=== PATIENT | female | born 1990 | race Caucasian/White ===

== ENCOUNTER 2018-04-24 09:49 | Observation (INO) | payer BC ==
[2018-04-24] MEDS ORDERED: ISOVUE-370 76%-LOCM 1 ML ONE (10:02)
[2018-04-24 11:01] LABS: Bilirubin Negative (Negative); Blood, Urine Negative (Negative); Clarity CLOUDY (Clear); Glucose, Urine (Dipstick) Negative (Negative); Leukocyte Negative (Negative); Nitrite Negative (Negative); Protein, Urine (Dipstick) Negative (Neg-Trace); Specific Gravity, Urine 1.004 (1.002-1.036); Urobilinogen 0.2 mg/dL (0.2-1.0)
[2018-04-24 11:33] LABS: #Basophils 0.1 thou/uL (0.0-0.2); #Eosinphils 0.1 thou/uL (0.0-0.7); #Lymphocytes 2.4 thou/uL (1.20-3.40); #Monocytes 0.5 thou/uL (0.11-0.59); %Basophils 0.7 % (0.0-1.0); %Eosinophils 0.7 % (0.0-10.0); %Lymphocytes 23.9 % (21.0-51.0); %Monocytes 4.7 % (0.0-10.0); Mean Corpuscular HGB CONC 33.9 g/dL (32.0-36.0); Mean Corpuscular Hemoglobin 30.3 pg (27.0-31.0); Mean Corpuscular Volume 89.6 fL (78.0-98.0); Mean Platelet Volume 7.8 fL (7.4-10.4); Platelet Count 293 thou/uL (130-400); RBC Distribution Width 11.2 % (11.5-14.5); Red Blood Cell (RBC) Count 4.63 mill/uL (4.20-5.40); White Blood Cell (WBC) Count 9.9 thou/uL (4.8-10.8)
[2018-04-24 11:42] LABS: BHCG - Serum Negative (NEGATIVE); Pregs Control Background? CLEAR/WHITE (CLR/WHITE); Pregs Control Bar Appear? YES (CONTROL BAR)
--- NOTE | 2018-04-24 11:50 | RAD ---
CHEST 1 VIEW: Date: 04/24/18 HISTORY: Syncope. COMPARISON: None. FINDINGS: Exam limited by underlying backboard. No acute displaced fracture of the ribs. Lungs are clear. No pn eumothorax or effusion. Cardiac silhouette and mediastinal contour is within normal limits. IMPRESSION: No acute intrathoracic abnormality. POS: [facility]
[2018-04-24 11:51] LABS: ALT (SGPT) 23 U/L (8-55); AST (SGOT) 21 U/L (5-34); Albumin 4.5 g/dL (3.5-5.0); Alkaline Phosphatase 71 U/L (40-150); Anion Gap 15 mmol/L (10-20); BUN (Urea Nitrogen) 11 mg/dL (7.0-18.7); Bilirubin, Total 0.7 mg/dL (0.2-1.2); CK (CPK) 387 U/L (29-168); Calc. Creatinine Clearance 0 mL/min (70-130); Carbon Dioxide 20 mmol/L (22-29); Chloride 109 mmol/L (98-107); Estimated GFR-MDRD 63; Globulin 2.6 g/dL (2.4-3.5); Glucose 96 mg/dL (70-105); Potassium 3.4 mmol/L (3.5-5.1); Protein, Total 7.1 g/dL (6.0-8.3); Sodium 141 mmol/L (136-145)
[2018-04-24 11:52] LABS: CKMB 0.7 ng/mL (0-6.6); Troponin I Less than 0.010 ng/mL (< 0.028)
--- NOTE | 2018-04-24 12:20 | CT ---
NONCONTRAST CT HEAD: Date: 04/24/18 HISTORY: Head injury. Syncope. COMPARISON: None available. FINDINGS: There is no evidence of a hemorrhage, acute infarction, mass effect, or midline shift. Ventricular sy stem is normal in size, shape, and position. Mucosal thickening is present in the right maxillary antrum. Remainder of the visualized paranasal si nuses and mastoid air cells are clear. The calvarial structures are intact without evidence of a frac ture. IMPRESSION: 1. No acute intracranial abnormalities demonstrated. 2. Sinus disease involving right maxillary antrum. POS: [facility]
--- NOTE | 2018-04-24 12:22 | CT ---
CT CERVICAL SPINE WITHOUT IV CONTRAST: Date: 04-24-18 History: Injury after a fall. Syncopal episode. Technique: Contiguous axial CT images are obtained through the cervical spine from the skull to the T 1-2 level. Sagittal and coronal reformatted images are provided. FINDINGS: There is no evidence of a fracture or subluxation involving the cervical spine. Prevertebral soft tis sues are within normal limits. Central spinal canal and neural foramina are patent. IMPRESSION: No fracture or subluxation involving the cervical spine. POS: [facility]
--- NOTE | 2018-04-24 12:24 | CT ---
CT ANGIOGRAM THORAX WITH IV CONTRAST AND 3D RECONSTRUCTIONS: Date: 04-24-18 History: Dyspnea. Syncopal episode. Comparison: None available. FINDINGS: No filling defects are seen in the pulmonary arteries to suggest a pulmonary embolus. The thoracic aorta is normal in caliber without evidence of an aortic dissection. Mediastinal structures have a normal CT appearance. The lungs are clear aside from dependent ground glass densities probably related to mild volume loss. No pleural effusion, pulmonary nodule, or mass is seen in the lungs bilaterally. The osseous structures have a normal appearance. Upper abdomen demonstrates normal CT appearance for arterial phase of imaging. IMPRESSION: 1. No CT evidence of a pulmonary embolus. POS: [facility]
--- NOTE | 2018-04-24 12:54 | RAD ---
THREE VIEWS RIGHT SHOULDER: Date: 04-24-18 History: Injury to right shoulder after a fall. FINDINGS: There is no evidence of a fracture, dislocation, or other osseous abnormality involving the left shou lder. IMPRESSION: No acute osseous abnormality. POS: [facility]
--- NOTE | 2018-04-24 15:35 | HP ---
PRIMARY CARE PHYSICIAN: Hickory Jean, but she cannot remember the name of the doctor. CHIEF COMPLAINT: Passed out several times. HISTORY OF PRESENT ILLNESS: Ms. Geronimo is a very pleasant 28-year-old female that has no significant past medical history except for childhood asthma. She says that she was at work when she was talking with a coworker and was getting ready to transfer a payment when everything went black. She had jus t stood up, she says, when this happened. Apparently, she fell and hit the ground and another cowork er called 911. By the time the EMS arrived, she was starting to come to. There was no report of any seizure-like activity. She says, when they tried to help her into the stretcher, she collapsed into her boss' arms, and again passed out. By this time, her fiance arrived, and she was placed in the a mbulance and it is reported that she had 2 or 3 more episodes of passing out while she was in the amb ulance. She was lying down at that time and each time it lasted a few minutes and her fiance says th at she would come to and be completely lucid at that time, but a little disoriented saying why she is in the ambulance and she did need to go to the hospital. He did not notice anything that looked lik e a seizure per his opinion. He did say that her blood pressures seem to fluctuate between 130s and 150s systolic, but her diastolic stayed within the 80s. The patient says that she has been having so me chest pain off and on, like an elephant sitting on her chest. She says the chest pain is unrelate d to exertion. She also, at times, will get extremely short of breath. This is also unrelated to ex ertion. He says sometimes it will happen at night, she will feel like she is short of breath and can not breathe. She also says that she has a cough, which has been off and on productive and also has p alpitations sometimes lasting up to a few hours. The patient says that she had a similar episode about 2 years ago. She was evaluated at [facility] in [place]. Apparently, they did a CT scan. She says she may have done some other tests and was seen by a neurologist and told that they could not find anything and she was discharged. She does admit that her job has been extremely stressful, especially with one particular coworker, but o therwise no other complaints. REVIEW OF SYSTEMS: All systems were reviewed and are negative except for that mentioned in the histo ry of present illness. PAST MEDICAL HISTORY: Significant for asthma. PAST SURGICAL HISTORY: She has had a tonsillectomy and adenoidectomy. ALLERGIES: No known drug allergies. SOCIAL HISTORY: She is engaged. She works at the [employer]. She is a nonsmoker. She occasion ally drinks. She admits to having had a miscarriage before. FAMILY HISTORY: Significant for heart disease in her grandfather. MEDICATIONS: Include Adderall 10 mg daily, and she has been on this for the past month. PHYSICAL EXAMINATION: GENERAL: She is alert and oriented. She appears to be in no acute distress. VITAL SIGNS: Blood pressure was 103/60, heart rate 79, respiratory rate of 18, temperature is 97.7. HEENT: Pupils are equal, round, and reactive. Extraocular muscles are intact. Her sclerae are anic teric. Throat no erythema and no exudates. NECK: No adenopathy, no bruits. LUNGS: Clear to auscultation. There is no wheezing, no rales. CARDIOVASCULAR: She had a normal S1 and S2. I did not appreciate an S3 or S4. No murmurs, clicks, or rubs. ABDOMEN: Soft, it is nontender, nondistended. Positive for bowel sounds. There is no rebound or gu arding. EXTREMITIES: There is no clubbing or cyanosis, no edema. NEUROLOGICAL: The exam is nonfocal. Her muscle strength is 5/5 in both her upper and lower extremit ies. Reflexes were symmetric. LABORATORY RESULTS: Urinalysis is negative. CT scan of the brain was negative. She had a white blo od cell count of 9.9, hemoglobin 14, hematocrit is 41.5, platelet count is 293. Sodium 141, potassiu m 3.4, chloride is 109, CO2 is 20, BUN of 11, creatinine 1.05, glucose is 96. Troponin is less than 0.010. Serum test is negative. She had an EKG, which is sinus. She had a sinus arrhythmi a, but no ST-wave changes. She had a CT scan of the brain, which was negative. Also, after she fell , she also had a CT angiogram of her chest, which was negative for PE. CT of the cervical spine and shoulders and x-rays of the wrist and hand were negative. ASSESSMENT AND PLAN: This is a 28-year-old female that presents to the emergency room after having a syncopal episode. She had the episodes, both in the standing position as well as a lying position, which makes the differential more difficult. There was no witnessed arrhythmia during that time. Sh e will be placed in observation. We will monitor her on telemetry, get an echocardiogram as well as carotid Dopplers. We will request the records from [facility] in [place] and consult Car diology since it does not appear that there was any seizure-like activity involved and she had seen a neurologist in the past. Monitor her blood pressure.
[2018-04-24] MEDS ORDERED: Acetaminophen 325 MG TAB PO PRN ×2 (16:01→16:11)
[2018-04-24] MEDS ORDERED: Ondansetron HCl/PF 4 MG/2 ML Vial IVP PRN (16:01)
[2018-04-24] MEDS ORDERED: Ondansetron ODT 4 MG TAB SL PRN (16:01)
--- NOTE | 2018-04-24 17:00 | CON ---
DATE OF CONSULTATION: 04/24/2018 REASON FOR CONSULTATION: Syncope. HISTORY OF PRESENT ILLNESS: Ms. Geronimo is a very pleasant 28-year-old woman with no significant past medical history of a syncopal episode. She had multiple syncopal episodes prior to arrival. She sta melly she feels like she is going to have an asthma attack prior to the episode. The only new medicati on she started has been Adderall 30 days ago. She also complained of mild chest discomfort that can last all day. She has also complained of intermittent shortness of breath. PAST MEDICAL HISTORY: Asthma. PAST SURGICAL HISTORY: Tonsillectomy, adenoidectomy. ALLERGIES: None. SOCIAL HISTORY: No current tobacco or alcohol use. MEDICATIONS: As above. PHYSICAL EXAMINATION: VITAL SIGNS: Blood pressure 100/60, pulse 80, respirations 20. NEUROLOGIC: The patient is alert and oriented times 3 with no focal neurologic deficits. HEENT: Sclerae without icterus. Mouth has moist mucous membranes with normal pallor. NECK: No JVD. Carotid upstroke brisk. No bruits bilaterally. LUNGS: Clear to auscultation with unlabored respirations. BACK: No scoliosis or kyphosis. CARDIAC: Regular rate and rhythm with normal S1 and S2. No S3 or S4 noted. No significant rubs, murmurs, thrills, or gallops noted throughout the precordium. PMI is not displaced. There is no parasternal heave. ABDOMEN: Soft, nontender, nondistended. No peritoneal signs present. No hepatosplenomegaly. No abnormal striae. EXTREMITIES: 2+ femoral and 2+ dorsalis pedis pulses. No cyanosis, clubbing, or edema. SKIN: No gross abnormalities. PERTINENT LABORATORY DATA: Hemoglobin 14, hematocrit 41. EKG: Normal sinus rhythm, nonspecific ST wave changes. IMPRESSION: Syncope. Etiology unknown. She has no significant past medical history for syncope. RECOMMENDATIONS: I would recommend a 3-week event recorder as well as a treadmill stress test and ec ho. I also discussed not driving given a recent syncope. Further recommendations pending the above.
--- NOTE | 2018-04-24 17:21 | ULT ---
STANDARD ULTRASOUND CAROTID DOPPLER: HISTORY: Syncope. COMPARISON: None. TECHNIQUE: Real-time verde-scale color Doppler and spectral analysis of the extracranial carotid and vertebral ar teries was performed. FINDINGS: There is antegrade flow to both vertebral arteries. The right ICA/CCA ratio is 0.89. The left ICA/C CA ratio is 0.59. No elevated peak systolic velocities within the internal carotid arteries. IMPRESSION: No hemodynamically significant stenosis. POS: [facility]
[2018-04-24 19:33] VITALS: BMI 22.8
[2018-04-25 06:31] LABS: Anion Gap 9 mmol/L (10-20); BUN (Urea Nitrogen) 10 mg/dL (7.0-18.7); Calc. Creatinine Clearance 97 mL/min (70-130); Calcium 9.2 mg/dL (7.8-10.44); Carbon Dioxide 23 mmol/L (22-29); Cardiac Risk 3.5 (Less than 4.5); Chloride 110 mmol/L (98-107); Cholesterol 146 mg/dl (< 200 Desired); Estimated GFR-MDRD 72; Glucose 92 mg/dL (70-105); HDL Cholesterol 42 mg/dL (>60 Neg Risk); LDL Cholesterol, Calculated 89 mg/dL; Potassium 4.1 mmol/L (3.5-5.1); Sodium 138 mmol/L (136-145); Triglycerides 76 mg/dL (Less than 150)
[2018-04-25 06:44] LABS: #Basophils 0.1 thou/uL (0.0-0.2); #Eosinphils 0.2 thou/uL (0.0-0.7); #Lymphocytes 2.7 thou/uL (1.20-3.40); #Monocytes 0.5 thou/uL (0.11-0.59); #Neutrophils 2.6 thou/uL (1.40-6.50); %Basophils 1.3 % (0.0-1.0); %Eosinophils 2.7 % (0.0-10.0); %Lymphocytes 45.3 % (21.0-51.0); %Monocytes 8.2 % (0.0-10.0); %Neutrophils 42.6 % (42.0-75.0); Hemoglobin 13.6 g/dL (12.0-16.0); Mean Corpuscular HGB CONC 34.6 g/dL (32.0-36.0); Mean Corpuscular Hemoglobin 31.4 pg (27.0-31.0); Mean Corpuscular Volume 90.7 fL (78.0-98.0); Mean Platelet Volume 7.3 fL (7.4-10.4); Platelet Count 273 thou/uL (130-400); RBC Distribution Width 11.4 % (11.5-14.5); Red Blood Cell (RBC) Count 4.34 mill/uL (4.20-5.40); White Blood Cell (WBC) Count 6.1 thou/uL (4.8-10.8)
--- NOTE | 2018-04-25 08:28 | PDOC.PN ---
- Subjective Encounter Start Date: 04/25/18 Encounter Start Time: 08:25 Ms. Geronimo was seen today in follow-up of syncope. She does not have any complaints this morning. she denies having any other syncopal episodes. - Objective Resuscitation Status: Resuscitation Status FULL:Full Resuscitation MAR Reviewed: Yes Vital Signs & Weight: Vital Signs (12 hours) Temp Pulse Resp BP BP BP Pulse Ox 04/25/18 03:24 97.8 F 61 16 98/62 128/79 122/84 98 Weight Weight 150 lb I&O: 04/24/18 04/25/18 04/26/18 06:59 06:59 06:59 Intake Total 920 Balance 920 Result Diagrams: 04/25/18 05:48 04/25/18 05:48 Additional Labs: Accuchecks 04/24/18 09:54 POC Glucose 92 Phys Exam - Physical Examination HEENT: PERRLA Respiratory: no wheezing, no rales, no rhonchi, clear to auscultation bilateral Cardiovascular: RRR, no significant murmur, no rub Gastrointestinal: soft, non-tender, no distention, positive bowel sounds Musculoskeletal: no edema Dx/Plan (1) Syncope Code(s): R55 - SYNCOPE AND COLLAPSE Status: Acute - Plan * Syncope- ? etiology * Carotid dopplers were negative * Await Echo and stress test results. Likely home this evening, with follow-up for Event recorder.
[2018-04-25 17:01] VITALS: BP 113/65; TEMP 97.5
--- NOTE | 2018-04-25 18:00 | PDOC.CTH ---
Cardiology Progress Note - Subjective Patient without complaints. No dizziness or near syncope. - Objective Vital Signs Temp Pulse Resp BP BP BP 04/25/18 16:05 97.5 F L 75 20 113/65 113/65 04/25/18 08:00 97.7 F 55 L 20 04/25/18 07:35 97.7 F 55 L 20 114/72 114/72 Admit Weight 150 lb 3 oz Weight 150 lb 04/24/18 04/25/18 04/26/18 06:59 06:59 06:59 Intake Total 920 Balance 920 - Physical Examination General/Neuro: alert & oriented x3 Lungs: CTA Heart: RRR Abdomen: NT/ND Extremities: other: (no edema) - Telemetry Telemetry Rhythm: SR - Labs Result Diagrams: 04/25/18 05:48 04/25/18 05:48 Troponin/CKMB CK-MB (CK-2) 0.7 ng/mL (0-6.6) 04/24/18 11:02 Troponin I Less than 0.010 ng/mL (< 0.028) 04/24/18 11:02 - Assessment/Plan 1. Recurrent syncope Carotid, ECHO and ETT negative. No arrhythmias on tele. Ok for discharge with plan for f/u with 30 day EVR. Also could consider LINQ placement.
--- NOTE | 2018-04-25 23:52 | DIS ---
DATE OF ADMISSION: 04/24/2018 DATE OF DISCHARGE: 04/25/2018 PRIMARY CARE PHYSICIAN: James Pena. DISCHARGE DISPOSITION: Home. PRIMARY DISCHARGE DIAGNOSES: 1. Syncope. 2. History of childhood asthma. DISCHARGE MEDICATIONS: Adderall 10 mg daily, biotin 10,000 units daily. CODE STATUS: FULL CODE. ALLERGIES: No known drug allergies. PROCEDURES DONE DURING ADMISSION: The patient had a CT scan of the brain as well as CT scan of the C -spine, which were negative for any fracture. No bleeding. She had a CT angiogram of the chest, whi ch was negative for pulmonary embolism. She had bilateral carotid Dopplers, which were negative for any flow-limiting disease. She had an echocardiogram, which was essentially negative. The patient w as seen by Cardiology as well. HOSPITAL COURSE: Ms. Geronimo is a pleasant 28-year-old female, who presented to the emergency room aft er having several syncopal episodes at home. The full description of which are in my history and phy sical. She was placed in observation, ruled out by cardiac enzymes. She was monitored on telemetry, and during her time in the hospital, there was no evidence of any ectopy or arrhythmia. She had an echo as well as Carotid Dopplers, which were negative and seen by cardiologists. She also had an exe rcise treadmill test, which was also negative. She was seen by Dr. Tejeda, who recommended she un dergo a 3-week event monitor. He will mail the monitor to the patient, and after discharge, she will follow up with him as instructed. She also needs to follow up with her primary care physician in 1- 2 weeks as well.
--- NOTE | 2018-04-26 12:57 | EKG ---
Test Reason : SYNCOPE Blood Pressure : / mmHG Vent. Rate : 077 BPM Atrial Rate : 077 BPM P-R Int : 120 ms QRS Dur : 086 ms QT Int : 382 ms P-R-T Axes : 002 069 008 degrees QTc Int : 432 ms Normal sinus rhythm with sinus arrhythmia Normal ECG Confirmed by DANNA BEDOYA MD ([id number]), legal editor IRWIN DAMIAN ([id number] on 04/26/2018 12:56:48 PM Referred By: Confirmed By:DANNA BEDOYA MD
== END 2018-04-25 16:45 | disposition home or self-care (01) ==
LOC: ERS 09:49 → 2NO 13:45
PROVIDERS: ADMIT Internal Medicine; ATTEND Internal Medicine
DX: R55 Syncope and collapse (principal); Z79.899 Other long term (current) drug therapy
CPT/HCPCS: 36415; 36416; 70450; 71045; 71275; 72125; 80048; 80053; 80061; 81003; 82553; 84146; 84484; 84703; 85025; 85379; 93005; 93017; 93306; 93880; 94760; 96360; 96361; G0378

== ENCOUNTER 2018-06-13 14:11 | Emergency (ER) | payer BC ==
[2018-06-13 15:13] LABS: #Basophils 0.1 thou/uL (0.0-0.2); #Eosinphils 0.1 thou/uL (0.0-0.7); #Lymphocytes 2.8 thou/uL (1.20-3.40); #Monocytes 0.6 thou/uL (0.11-0.59); #Neutrophils 5.7 thou/uL (1.40-6.50); %Basophils 1.3 % (0.0-1.0); %Eosinophils 0.9 % (0.0-10.0); %Lymphocytes 30.2 % (21.0-51.0); %Monocytes 6.2 % (0.0-10.0); %Neutrophils 61.4 % (42.0-75.0); Hemoglobin 15.4 g/dL (12.0-16.0); Mean Corpuscular HGB CONC 32.8 g/dL (32.0-36.0); Mean Corpuscular Hemoglobin 30.1 pg (27.0-31.0); Mean Corpuscular Volume 91.8 fL (78.0-98.0); Mean Platelet Volume 7.6 fL (7.4-10.4); Platelet Count 304 thou/uL (130-400); RBC Distribution Width 11.1 % (11.5-14.5); White Blood Cell (WBC) Count 9.2 thou/uL (4.8-10.8)
[2018-06-13 15:21] LABS: BHCG - Serum Negative (NEGATIVE); Pregs Control Background? CLEAR/WHITE (CLR/WHITE); Pregs Control Bar Appear? YES (CONTROL BAR)
[2018-06-13 15:31] LABS: ALT (SGPT) 16 U/L (8-55); AST (SGOT) 17 U/L (5-34); Albumin 4.7 g/dL (3.5-5.0); Alkaline Phosphatase 65 U/L (40-150); Anion Gap 13 mmol/L (10-20); BUN (Urea Nitrogen) 8 mg/dL (7.0-18.7); Bilirubin, Total 0.8 mg/dL (0.2-1.2); Calc. Creatinine Clearance 0 mL/min (70-130); Calcium 10.3 mg/dL (7.8-10.44); Carbon Dioxide 25 mmol/L (22-29); Chloride 106 mmol/L (98-107); Estimated GFR-MDRD 67; Globulin 2.5 g/dL (2.4-3.5); Glucose 91 mg/dL (70-105); Potassium 3.7 mmol/L (3.5-5.1); Protein, Total 7.2 g/dL (6.0-8.3); Sodium 140 mmol/L (136-145)
--- NOTE | 2018-06-13 15:43 | RAD ---
TWO VIEWS CHEST: 06/13/18 PROVIDED CLINICAL HISTORY: Chest pain. FINDINGS: No comparison examinations are currently available. The cardiac and mediastinal silhouette and within normal limits. Lungs appear clear. No pleural fluid or pneumothorax apparent. IMPRESSION: No evidence for an acute cardiopulmonary process. POS: [facility]
--- NOTE | 2018-06-13 15:47 | RAD ---
LEFT ELBOW RADIOGRAPHS FOUR VIEWS: 06/13/18 PROVIDED CLINICAL HISTORY: Left elbow pain, status post fall. FINDINGS: IV tubing overlies the left antecubital fossa. There is no evidence for fracture or other acute osseo us abnormality. If there is persistent clinical concern, conservative management and followup imaging are advised. IMPRESSION: As above. POS: [facility]
== END 2018-06-13 16:18 | disposition home or self-care (01) ==
LOC: ERS 14:11
DX: R55 Syncope and collapse (principal); F90.9 Attention-deficit hyperactivity disorder, unspecified type; J45.909 Unspecified asthma, uncomplicated; F41.9 Anxiety disorder, unspecified
CPT/HCPCS: 36415; 71046; 80053; 84703; 85025; 93005; 94760

== ENCOUNTER 2018-06-28 17:31 | Emergency (ER) | payer BC ==
[2018-06-28 18:29] LABS: #Basophils 0.1 thou/uL (0.0-0.2); #Eosinphils 0.2 thou/uL (0.0-0.7); #Lymphocytes 3.1 thou/uL (1.20-3.40); #Monocytes 0.5 thou/uL (0.11-0.59); #Neutrophils 3.8 thou/uL (1.40-6.50); %Basophils 1.3 % (0.0-1.0); %Eosinophils 2.9 % (0.0-10.0); %Lymphocytes 40.3 % (21.0-51.0); %Monocytes 6.4 % (0.0-10.0); %Neutrophils 49.1 % (42.0-75.0); Hemoglobin 12.1 g/dL (12.0-16.0); Mean Corpuscular HGB CONC 33.3 g/dL (32.0-36.0); Mean Corpuscular Hemoglobin 28.8 pg (27.0-31.0); Mean Corpuscular Volume 86.7 fL (78.0-98.0); Mean Platelet Volume 8.3 fL (7.4-10.4); Platelet Count 197 thou/uL (130-400); RBC Distribution Width 10.9 % (11.5-14.5); White Blood Cell (WBC) Count 7.7 thou/uL (4.8-10.8)
--- NOTE | 2018-06-28 19:56 | ULT ---
LEFT UPPER EXTREMITY VENOUS ULTRASOUND WITH DOPPLER: 06/28/18 HISTORY: Edema. Pain. Swelling. COMPARISON: None. TECHNIQUE: Darby scale, color flow, doppler imaging with spectral waveform analysis performed in the left upper e xtremity venous system. FINDINGS: There is compressibility and flow in the internal jugular vein. There is patency and flow in the subc lavian vein. There is compressibility and flow in the axillary vein, cephalic vein, brachial vein, ra dial vein and ulnar vein. There is echogenic material and lack of compressibility in the basilic vein starting in the mid aspect of the humerus and extending just beyond the antecubital fossa. IMPRESSION: Thrombus in the left basilic vein. POS: [facility]
== END 2018-06-28 20:08 | disposition home or self-care (01) ==
LOC: SCSER 17:31
DX: I82.612 Acute embolism and thrombosis of superficial veins of left upper extremity (principal); J45.909 Unspecified asthma, uncomplicated; F41.9 Anxiety disorder, unspecified; F90.9 Attention-deficit hyperactivity disorder, unspecified type
CPT/HCPCS: 85025

== ENCOUNTER 2018-10-04 10:07 | Emergency (ER) | payer BC ==
[2018-10-04 10:42] LABS: #Basophils 0.1 thou/uL (0.0-0.2); #Eosinphils 0.2 thou/uL (0.0-0.7); #Lymphocytes 2.3 thou/uL (1.20-3.40); #Monocytes 0.4 thou/uL (0.11-0.59); #Neutrophils 1.9 thou/uL (1.40-6.50); %Basophils 1.4 % (0.0-1.0); %Eosinophils 3.5 % (0.0-10.0); %Lymphocytes 47.1 % (21.0-51.0); %Monocytes 8.5 % (0.0-10.0); %Neutrophils 39.5 % (42.0-75.0); Hemoglobin 13.6 g/dL (12.0-16.0); Mean Corpuscular HGB CONC 32.1 g/dL (32.0-36.0); Mean Corpuscular Hemoglobin 29.2 pg (27.0-31.0); Mean Platelet Volume 7.7 fL (7.4-10.4); Platelet Count 236 thou/uL (130-400); RBC Distribution Width 11.9 % (11.5-14.5); Red Blood Cell (RBC) Count 4.66 mill/uL (4.20-5.40); White Blood Cell (WBC) Count 4.9 thou/uL (4.8-10.8)
--- NOTE | 2018-10-04 11:30 | ULT ---
VENOUS DOPPLER ULTRASOUND OF THE LEFT UPPER EXTREMITY: Date: 10/04/18 HISTORY: Left arm swelling and edema. TECHNIQUE: Darby scale ultrasound with color flow and spectral Doppler imaging of the deep venous system of the l eft upper extremity was performed. FINDINGS: There is good flow, compression, and normal spectral waveforms of the deep veins of the left upper ex tremity, including the left internal jugular, subclavian, axillary, basilic, radial, ulnar, brachial, and cephalic veins. IMPRESSION: No evidence of deep venous thrombosis in the left upper extremity. POS: [facility]
== END 2018-10-04 11:15 | disposition home or self-care (01) ==
LOC: SCSER 10:07
DX: M79.89 Other specified soft tissue disorders (principal); I49.9 Cardiac arrhythmia, unspecified; J45.909 Unspecified asthma, uncomplicated; F41.9 Anxiety disorder, unspecified; F90.9 Attention-deficit hyperactivity disorder, unspecified type; Z79.899 Other long term (current) drug therapy
CPT/HCPCS: 36415; 85025

== ENCOUNTER 2020-02-15 11:56 | Outpatient (CLI) | payer BC, OTHER ==
[2020-02-16 11:38] LABS: SARS-CoV-2 MS2 Positive; SARS-CoV-2 N Gene Negative; SARS-CoV-2 S Gene Negative; SARS-CoV-2 orf1ab Negative
== END 2020-02-15 11:57 | disposition home or self-care (01) ==
LOC: SCSLAB 11:56
PROVIDERS: ATTEND Obstetrics & Gynecology
DX: Z01.812 Encounter for preprocedural laboratory examination (principal); Z11.59 Encounter for screening for other viral diseases
CPT/HCPCS: 87635; U0003

== ENCOUNTER 2020-02-18 18:00 | Inpatient (IN) | payer BC, OTHER ==
[~2020-02-18 18:00] MED LIST: Bupivacaine 0.25% HCL 30 ML VIAL ONE
[2020-02-18 18:43] VITALS: BMI 34.0
[2020-02-18] MEDS ORDERED: Diphenoxylate HCl/Atropine Tablet PO PRN ×2 (18:57)
[2020-02-18] MEDS ORDERED: Lidocaine 1% (PF) 30 ML VIAL SC PRN (18:57)
[2020-02-18] MEDS ORDERED: Zolpidem Tartrate 5 MG TAB PO PRN (18:57)
[2020-02-18] MEDS ORDERED: HYDROcodone/Acetaminophen 5/325 mg Tablet PO PRN ×2 (18:57)
[2020-02-18] MEDS ORDERED: Promethazine HCl 25 MG/ML VIAL IM PRN (18:57)
[2020-02-18] MEDS ORDERED: Docusate 100 MG CAP PO PRN (18:57)
[2020-02-18] MEDS ORDERED: Misoprostol 200 MCG TAB PR PRN (18:57)
[2020-02-18] MEDS ORDERED: hydrALAZINE 20 MG/ML VIAL SLOW IVP PRN (18:57)
[2020-02-18] MEDS ORDERED: Butorphanol Tartrate 1 MG/ML VIAL SLOW IVP PRN (18:57)
[2020-02-18] MEDS ORDERED: Acetaminophen 500 MG TAB PO PRN (18:57)
[2020-02-18] MEDS ORDERED: Ibuprofen 800 MG TAB PO PRN (18:57)
[2020-02-18] MEDS ORDERED: Carboprost 250 MCG/ML AMP IM PRN (18:57)
[2020-02-18] MEDS: Lactated Ringer's 1,000 ML IV SCH (19:00)
--- NOTE | 2020-02-18 19:05 | PDOC.LDHP ---
Labor and Delivery H&P Chief complaint: scheduled induction HPI: 29 y/o at 38 weeks, GBS negative, with CHTN, presents for term induction of labor. Current gestational age (weeks): 37 Due date: 03/03/20 Grav: 3 Para: 0 Current complications: hypertension Abnormal US findings: No Current medications: pre-rudy vitamins Previous surgical history: none Allergies/Adverse Reactions: Allergies Allergy/AdvReac Type Severity Reaction Status Date / Time pineapple Allergy Severe Anaphylaxis Verified 02/18/20 18:16 Social history: none - Physical Exam Vital signs reviewed and normal: yes General: NAD, resting Heart: RRR Lungs: CTAB Abdomen: NTTP Extremeties: no edema FHT: category 1 - Assessment L&D Assessment: medically indicated induction - Plan Plan: admit to L&D, cervical ripening
[2020-02-18] MEDS ORDERED: NS w/ Oxytocin 10 units 500 ML IV SCH (19:30)
[2020-02-18 19:59] LABS: Hemoglobin 12.8 g/dL (12.0-16.0); Mean Corpuscular HGB CONC 35.7 g/dL (32.0-36.0); Mean Corpuscular Hemoglobin 32.3 pg (27.0-31.0); Mean Corpuscular Volume 90.5 fL (78.0-98.0); Mean Platelet Volume 8.5 fL (7.4-10.4); Platelet Count 252 thou/uL (130-400); RBC Distribution Width 12.1 % (11.5-14.5); Red Blood Cell (RBC) Count 3.97 mill/uL (4.20-5.40); White Blood Cell (WBC) Count 11.3 thou/uL (4.8-10.8)
[2020-02-18 20:35] LABS: ALT (SGPT) 17 U/L (8-55); AST (SGOT) 14 U/L (5-34); Albumin 3.6 g/dL (3.5-5.0); Alkaline Phosphatase 154 U/L (40-110); Anion Gap 15 mmol/L (10-20); BUN (Urea Nitrogen) 9 mg/dL (7.0-18.7); Bilirubin, Total 0.2 mg/dL (0.2-1.2); Calc. Creatinine Clearance 198 mL/min (70-130); Calcium 9.9 mg/dL (7.8-10.44); Carbon Dioxide 21 mmol/L (22-29); Chloride 106 mmol/L (98-107); Estimated GFR-MDRD Greater than 90; Globulin 2.6 g/dL (2.4-3.5); Glucose 101 mg/dL (70-105); Potassium 3.9 mmol/L (3.5-5.1); Protein, Total 6.2 g/dL (6.0-8.3); Sodium 138 mmol/L (136-145)
[2020-02-18 20:38] LABS: Syphilis Antibody Nonreactive (Nonreactive); Syphilis Antibody Index 0.07 S/CO (<1.00 Non-Reactive)
[2020-02-18] MEDS: Misoprostol 100 MCG TAB VAG SCH (22:05)
[2020-02-19 01:45] LABS: HBSAg Index 0.18 S/CO (0-0.99); Hep B Surf Ag Non-Reactive S/CO (NonReactive)
[2020-02-19] MEDS: Misoprostol 100 MCG TAB VAG SCH ×5 (02:55→16:40)
[2020-02-19] MEDS: Lactated Ringer's 1,000 ML IV SCH ×3 (07:32→22:48)
[2020-02-19] MEDS: Dextrose 5%-Lactated Ringers 1,000 ML IV SCH ×2 (11:08→22:48)
[2020-02-19] MEDS: Ondansetron PF 4 MG/2 ML Vial IVP PRN ×2 (13:39→21:45)
[2020-02-19] MEDS: NS w/ Oxytocin 10 units 500 ML IV SCH ×2 (16:40→21:41)
[2020-02-19] MEDS: Fentanyl 4 mcg/Bup 0.1% Cadd 100 ML ONE (22:35)
[2020-02-20] MEDS: Ondansetron PF 4 MG/2 ML Vial IVP PRN (04:21)
[2020-02-20] MEDS ORDERED: Fentanyl 4 mcg/Bup 0.1% Cadd 0 ML ONE (05:39)
[2020-02-20] MEDS ORDERED: Fentanyl 4 mcg/Bup 0.1% Cadd 100 ML ONE (05:45)
[2020-02-20] MEDS: Fentanyl 4 mcg/Bup 0.1% Cadd 100 ML ONE (05:49)
[2020-02-20] MEDS: Lactated Ringer's 1,000 ML IV SCH ×2 (05:59→18:23)
[2020-02-20] MEDS ORDERED: Lidocaine 1% (PF) 30 ML VIAL ONE (10:20)
[2020-02-20] MEDS ORDERED: NS / Oxytocin 40 units/1000ml 1,000 ML ONE (10:20)
[2020-02-20] MEDS: NS / Oxytocin 40 units/1000ml 1,000 ML IV PRN ×2 (12:30→14:08)
[2020-02-20] MEDS ORDERED: HYDROcodone/Acetaminophen 5/325 mg Tablet PO PRN ×2 (14:55)
[2020-02-20] MEDS ORDERED: Bisacodyl 10 MG SUPP PR PRN (14:55)
[2020-02-20] MEDS ORDERED: hydrALAZINE 20 MG/ML VIAL SLOW IVP PRN (14:55)
[2020-02-20] MEDS ORDERED: Lanolin Ointment 7 GM TUBE TOP PRN (14:55)
[2020-02-20] MEDS ORDERED: NS / Oxytocin 40 units/1000ml 1,000 ML IV SCH (14:55)
[2020-02-20] MEDS ORDERED: Preparation H Ointment 28 GM TUBE PR PRN (14:55)
[2020-02-20] MEDS ORDERED: Promethazine HCl 25 MG/ML VIAL IM PRN (14:55)
[2020-02-20] MEDS ORDERED: Milk Of Magnesia 30 ML UDCUP PO PRN (14:55)
[2020-02-20] MEDS ORDERED: Ondansetron PF 4 MG/2 ML Vial IVP PRN (14:55)
[2020-02-20] MEDS ORDERED: Benzocaine-Menthol 82.5 ML CAN TOP PRN (14:55)
[2020-02-20] MEDS ORDERED: diphenhydrAMINE 25 MG CAP PO PRN (14:55)
[2020-02-20] MEDS ORDERED: Zolpidem Tartrate 5 MG TAB PO PRN (14:55)
[2020-02-20] MEDS: Ferrous Sulfate 325 MG TAB PO SCH (18:21)
[2020-02-20] MEDS: Misoprostol 100 MCG TAB VAG SCH ×2 (18:22→18:23)
[2020-02-20] MEDS: Docusate Calcium (SURFAK) 240 MG CAP PO SCH (21:15)
[2020-02-20] MEDS: Ibuprofen 800 MG TAB PO SCH (21:15)
[2020-02-21] MEDS: Ibuprofen 800 MG TAB PO SCH ×2 (05:39→14:19)
[2020-02-21 05:45] LABS: Hemoglobin 11.7 g/dL (12.0-16.0); Mean Corpuscular HGB CONC 34.2 g/dL (32.0-36.0); Mean Corpuscular Hemoglobin 31.8 pg (27.0-31.0); Mean Corpuscular Volume 92.8 fL (78.0-98.0); Mean Platelet Volume 8.1 fL (7.4-10.4); Platelet Count 192 thou/uL (130-400); RBC Distribution Width 12.1 % (11.5-14.5); Red Blood Cell (RBC) Count 3.69 mill/uL (4.20-5.40); White Blood Cell (WBC) Count 13.5 thou/uL (4.8-10.8)
[2020-02-21] MEDS: Ferrous Sulfate 325 MG TAB PO SCH (08:58)
[2020-02-21] MEDS: Docusate Calcium (SURFAK) 240 MG CAP PO SCH (08:59)
[2020-02-21] MEDS ORDERED: Prenatal Vitamin 1 TAB PO SCH (09:00)
[2020-02-21 12:58] VITALS: BP 129/82; TEMP 98.2
[2020-02-21] MEDS ORDERED: Adacel (T-DAP) 0.5 ML SYRINGE IM ONE (14:55)
[2020-02-21] MEDS ORDERED: Varicella virus, LIVE 0.5 ML VIAL SC ONE (14:55)
[2020-02-21] MEDS ORDERED: Measles/Mumps/Rubella 10 MCG/0.5 ML VIAL SC ONE (14:55)
== END 2020-02-21 17:30 | disposition home or self-care (01) | DRG 807 ==
LOC: L&D 18:32 → 3SW 02-20 15:33
PROVIDERS: ADMIT Obstetrics & Gynecology; ATTEND Obstetrics & Gynecology
PROC: 10E0XZZ Delivery of Products of Conception, External Approach (ICD-10-PCS; principal; 2020-02-20)
PROC: 0KQM0ZZ Repair Perineum Muscle, Open Approach (ICD-10-PCS; 2020-02-20)
PROC: 0W8NXZZ Division of Female Perineum, External Approach (ICD-10-PCS; 2020-02-20)
PROC: 10907ZC Drainage of Amniotic Fluid, Therapeutic from Products of Conception, Via Natural or Artificial Opening (ICD-10-PCS; 2020-02-20)
PROC: 3E0P7VZ Introduction of Hormone into Female Reproductive, Via Natural or Artificial Opening (ICD-10-PCS; 2020-02-20)
DX: O16.4 Unspecified maternal hypertension, complicating childbirth (principal); Z37.0 Single live birth; Z3A.38 38 weeks gestation of pregnancy; O70.1 Second degree perineal laceration during delivery
CPT/HCPCS: 36415; 51702; 80053; 85027; 86780; 86850; 86900; 86901; 87340; 87635; 90715; J2001; J2405; J2550; J2590; S0020; U0003